=== PATIENT | female | born 1955 | race Caucasian/White ===

== ENCOUNTER 2021-06-18 18:09 | Inpatient (IN) | payer MEDICARE, OTHER ==
[~2021-06-18] VITALS: Ht 162.6 cm; Wt 86.2 kg
[2021-06-18] MEDS ORDERED: ALLERGY RELIEF10 M1 PO (22:09)
[2021-06-18] MEDS ORDERED: VITAMIN D21250 MCG PO (22:09)
[2021-06-18] MEDS ORDERED: METOPROLOL SUCC50 MG PO (22:09)
[2021-06-18] MEDS ORDERED: COMPANION TABL0.4 MG PO (22:10)
[2021-06-18 22:20] LABS: HEMOGLOBIN 14.3 gm/dl (12.3-15.3); RED BLOOD COUNT 4.67 M/UL (4.00-5.10); WHITE BLOOD COUNT 8.2 K/UL (4.5-11.0)
[2021-06-19 05:37] LABS: WHITE BLOOD COUNT 6.7 K/UL (4.5-11.0)
[2021-06-19 05:38] LABS: HEMOGLOBIN 12.3 gm/dl (12.3-15.3); RED BLOOD COUNT 4.1 M/UL (4.00-5.10)
[2021-06-20 04:54] LABS: HEMOGLOBIN 12.1 gm/dl (12.3-15.3); RED BLOOD COUNT 4.03 M/UL (4.00-5.10); WHITE BLOOD COUNT 7.8 K/UL (4.5-11.0)
--- NOTE | 2021-06-20 05:54 | NUR ---
2342- NOTIFIED QASHOU OF PATIENT BEING ANXIOUS AND RESTLESS AND HAVING A HIGH BP AFTER ADMINISTRATION OF ATIVAN AND MELATONIN. SEE ORDERS FOR LABATALOL 0015-NOTIFIED QASHOU THAT PATIENT WAS PULLING OFF HER OXYGEN AND THAT SHE WAS STILL RESTLESS. NO NEW ORDERS GIVEN 0114-NOTIFIED QASH OF PATIENT BP BEING HIGH AND PATIENT BEING RESTLESS AND BREATHING HARD. HE CAME AND SEE PATIENT AND ORDERED ONE TIME DOSE OF GEODON AND CHANGED THE RATE OF LABATELOL.
[2021-06-21 08:13] LABS: HEMOGLOBIN 13.1 gm/dl (12.3-15.3); RED BLOOD COUNT 4.49 M/UL (4.00-5.10)
--- NOTE | 2021-06-22 03:05 | NUR ---
0230-DR BRO NOTIFIED THAT PATIENT WAS STRUGGLING TO BREATHE WITH AN O2 SAT OF 84% AND RESP RATE OF 40. ORDERS TO INTUBATE PATIENT. PATIENT WAS INTUBATED AT 0230 WITH 7.5 AND 24 @LIP. DR JAMES FROM ER CAME AND INTUBATED PATIENT. CHEST XRAY CONFIRMED PLACEMENT. FAMILY NOTIFIED. SEE MD ORDERS FOR MEDS
[2021-06-22 04:40] LABS: HEMOGLOBIN 12.1 gm/dl (12.3-15.3)
[2021-06-22 04:41] LABS: RED BLOOD COUNT 4.03 M/UL (4.00-5.10)
[2021-06-22 05:04] LABS: BUN/CREATININE RATIO 31 (0-10)
--- NOTE | 2021-06-22 05:10 | NUR ---
0351-NOTIFIED DIEUDONNE THAT PATIENT O2 SAT IN 80'S AND RESP RATE 40-50'S AND THAT HER HEART RATE WAS ELEVATED 120'S. 0400-DR BRO ARRIVED TO FLOOR TO ASSESS PATIENT, PATIENTS NOTIFIED THAT PATIENT NEEDED INTUBATED AGAIN. 0418-PATIENT INTUBATED.
[2021-06-23 05:06] LABS: HEMOGLOBIN 13.3 gm/dl (12.3-15.3); RED BLOOD COUNT 4.41 M/UL (4.00-5.10)
[2021-06-24 05:39] LABS: HEMOGLOBIN 12.1 gm/dl (12.3-15.3); RED BLOOD COUNT 4.05 M/UL (4.00-5.10); WHITE BLOOD COUNT 15.3 K/UL (4.5-11.0)
[2021-06-25 05:54] LABS: HEMOGLOBIN 10.2 gm/dl (12.3-15.3); RED BLOOD COUNT 3.4 M/UL (4.00-5.10); WHITE BLOOD COUNT 12.4 K/UL (4.5-11.0)
[2021-06-26 05:51] LABS: HEMOGLOBIN 8.9 gm/dl (12.3-15.3)
[2021-06-26 05:53] LABS: RED BLOOD COUNT 2.97 M/UL (4.00-5.10); WHITE BLOOD COUNT 6.4 K/UL (4.5-11.0)
[2021-06-27 05:22] LABS: HEMOGLOBIN 9.1 gm/dl (12.3-15.3); RED BLOOD COUNT 3.03 M/UL (4.00-5.10); WHITE BLOOD COUNT 7.3 K/UL (4.5-11.0)
[2021-06-28 04:33] LABS: HEMOGLOBIN 9.7 gm/dl (12.3-15.3); RED BLOOD COUNT 3.23 M/UL (4.00-5.10)
[2021-06-28 04:34] LABS: WHITE BLOOD COUNT 14.1 K/UL (4.5-11.0)
[2021-06-29 10:34] LABS: HEMOGLOBIN 7.8 gm/dl (12.3-15.3)
[2021-06-29 10:35] LABS: RED BLOOD COUNT 2.61 M/UL (4.00-5.10); WHITE BLOOD COUNT 8.3 K/UL (4.5-11.0)
[2021-06-29 16:13] LABS: HEPARIN INDUCED PLATELET AB 0.247 OD (0.000-0.400)
[2021-06-30 05:36] LABS: HEMOGLOBIN 9.2 gm/dl (12.3-15.3)
[2021-06-30 05:37] LABS: RED BLOOD COUNT 3.08 M/UL (4.00-5.10); WHITE BLOOD COUNT 11.6 K/UL (4.5-11.0)
[2021-06-30 05:58] LABS: BUN/CREATININE RATIO 64 (0-10)
[2021-07-01 05:42] LABS: HEMOGLOBIN 7.5 gm/dl (12.3-15.3); RED BLOOD COUNT 2.49 M/UL (4.00-5.10); WHITE BLOOD COUNT 5.6 K/UL (4.5-11.0)
[2021-07-02 05:50] LABS: HEMOGLOBIN 7.7 gm/dl (12.3-15.3); RED BLOOD COUNT 2.56 M/UL (4.00-5.10); WHITE BLOOD COUNT 6.2 K/UL (4.5-11.0)
[2021-07-02 06:06] LABS: BUN/CREATININE RATIO 54 (0-10)
[2021-07-03 10:21] LABS: RED BLOOD COUNT 2.39 M/UL (4.00-5.10); WHITE BLOOD COUNT 5.6 K/UL (4.5-11.0)
[2021-07-03 10:26] LABS: HEMOGLOBIN 6.9 gm/dl (12.3-15.3)
--- NOTE | 2021-07-03 15:46 | NUR ---
1405: PATIENT BRADYCARDIC HEART RATE 44 BLOOD PRESSURE 63/29. DOCTOR RANDI CALLED TO BEDSIDE. CODE BLUE ACTIVATED. SEE CODE SHEET FOR MEDICATIONS GIVEN. 1406: DR BRYAN CALLED SISTER, MANAN TO GIVE UPDATE ON PATIENT STATUS.
--- NOTE | 2021-07-03 16:04 | NUR ---
1405 OXYGEN SATURATION CONTINUING TO DECLINE. PATIENTS FIO2 INCREASED FROM 90% TO 100% PER DR BRYAN. PEEP INCREASED FROM 10 T0 12.
[2021-07-04 11:37] LABS: HEMOGLOBIN 10.4 gm/dl (12.3-15.3)
[2021-07-04 11:40] LABS: RED BLOOD COUNT 3.49 M/UL (4.00-5.10); WHITE BLOOD COUNT 7.9 K/UL (4.5-11.0)
[2021-07-05 08:09] LABS: HEMOGLOBIN 9.9 gm/dl (12.3-15.3); RED BLOOD COUNT 3.38 M/UL (4.00-5.10); WHITE BLOOD COUNT 8.9 K/UL (4.5-11.0)
--- NOTE | 2021-07-05 23:47 | NUR ---
1929 DIFFICULTY OBTAINING O2 SAT ON MONITOR. MULTIPLE SITES AND PROBES USED. O2 SAT 80%. RT CALLED TO BEDSIDE. RN SUCTIONED PT ETT, MODERATE AMOUNT OF BLOOD SUCTIONED. MD BRYAN AWARE. ORDERS TO TRANSFUSE 1 OF PLATELETS. 2039 FSBG 66, 1 AMP D50 GIVEN. 2200 PT TEMP 96.3, BLANKETS APPLIED AND HEAT ON. 2300 TEMP 95.8 VINICIO HUGGER APPLIED.
== END 2021-07-06 05:49 | disposition expired | DRG 870 ==
LOC: CCU 20:43
PROVIDERS: Internal Medicine; Internal Medicine Nephrology; Internal Medicine Pulmonary Disease; Nurse Practitioner Pediatrics; ADMIT Surgery
PROC: XW033E5 Introduction of Remdesivir Anti-infective into Peripheral Vein, Percutaneous Approach, New Technology Group 5 (ICD-10-PCS; 2021-06-18)
PROC: 3E0333Z Introduction of Anti-inflammatory into Peripheral Vein, Percutaneous Approach (ICD-10-PCS; 2021-06-18)
PROC: 8E0ZXY6 Isolation (ICD-10-PCS; 2021-06-18)
PROC: 0DH67UZ Insertion of Feeding Device into Stomach, Via Natural or Artificial Opening (ICD-10-PCS; 2021-06-21)
PROC: 5A1955Z Respiratory Ventilation, Greater than 96 Consecutive Hours (ICD-10-PCS; principal; 2021-06-22)
PROC: 0BH18EZ Insertion of Endotracheal Airway into Trachea, Via Natural or Artificial Opening Endoscopic (ICD-10-PCS; 2021-06-22)
PROC: 3E033XZ Introduction of Vasopressor into Peripheral Vein, Percutaneous Approach (ICD-10-PCS; 2021-06-22)
PROC: 30233R1 Transfusion of Nonautologous Platelets into Peripheral Vein, Percutaneous Approach (ICD-10-PCS; 2021-07-05)
DX: A41.89 Other specified sepsis (principal); U07.1 COVID-19; J12.82 Pneumonia due to coronavirus disease 2019; N17.0 Acute kidney failure with tubular necrosis; G93.41 Metabolic encephalopathy; R65.21 Severe sepsis with septic shock; J80 Acute respiratory distress syndrome; E87.2 Acidosis; E87.1 Hypo-osmolality and hyponatremia; I10 Essential (primary) hypertension; F17.210 Nicotine dependence, cigarettes, uncomplicated; E11.65 Type 2 diabetes mellitus with hyperglycemia; E87.5 Hyperkalemia; E87.6 Hypokalemia; D69.6 Thrombocytopenia, unspecified; I95.2 Hypotension due to drugs; T42.75XA Adverse effect of unspecified antiepileptic and sedative-hypnotic drugs, initial encounter
CPT/HCPCS: 31500; 36415; 36430; 36600; 71045; 74018; 80048; 80053; 82728; 82803; 82962; 83036; 83605; 83735; 84439; 84443; 85014; 85018; 85025; 85027; 85379; 85384; 85610; 85730; 86140; 86850; 86900; 86901; 86920; 87040; 87070; 87086; 87205; 94002; 94003; 94640; 94660; 94760; C9113; J0171; J0330; J0360; J0456; J0461; J0696; J1100; J1265; J1630; J1650; J1940; J2060; J2248; J2704; J2765; J3010; J3480; J3486; J7030; J7040; J7070; J7121; P9016; P9035; P9047